=== PATIENT | female | born 1985 | race Caucasian/White ===

== ENCOUNTER → 2020-08-21 | Outpatient (CLI) | payer OTHER ==
--- NOTE | 2020-08-21 15:01 | US ---
EXAMINATION TYPE: US thyroid st tissue head/neck DATE OF EXAM: 08/21/2020 COMPARISON: Thyroid ultrasound December 16, 2013 CLINICAL HISTORY: E03.9 HYPOTHYROID. Thyroid disorder on meds for years. GLAND SIZE: Right Lobe: 2.5 x .9 x 1.0 cm Overall Parenchyma: heterogenous Left Lobe: 3.4 x 1.6 x 1.4 cm Overall Parenchyma: heterogeneous Isthmus Thickness: .2 cm NODULES RIGHT: # of nodules measured on right: 0 LEFT: # of nodules measured on left: ISTHMUS: # of nodules measured in the isthmus: 0 Bilateral neck scanned, no evidence of lymphadenopathy. Heterogeneous small sized thyroid gland without discrete nodule. No significant change from prior. IMPRESSION: As above.
== END | disposition home or self-care (01) ==
LOC: RADUSWWP 14:38
PROVIDERS: ATTEND Family Medicine
DX: E03.9 Hypothyroidism, unspecified (principal)
CPT/HCPCS: 76536

== ENCOUNTER 2022-04-12 06:54 | Observation (INO) | payer OTHER ==
[2022-04-12] MEDS ORDERED: SODIUM CHLORIDE 0.9% 500 ML 500 ML IV STA (07:09)
[2022-04-12] MEDS ORDERED: SODIUM CHLORIDE 0.9% 1,000 ML IV STA (07:09)
[2022-04-12] MEDS ORDERED: ONDANSETRON 4 MG/2 ML VIAL IVP STA (07:09)
--- NOTE | 2022-04-12 07:47 | ED ---
Abdominal Pain HPI - General Chief Complaint: Abdominal Pain Stated Complaint: RLQ pain, vomiting Time Seen by Provider: 04/12/22 07:04 Source: patient, RN notes reviewed Mode of arrival: ambulatory Limitations: no limitations - History of Present Illness Initial Comments: This a 36-year-old female presents emergency Department chief complaint of right lower quadrant abdominal pain. Patient states it started 2 days ago with vomiting, diarrhea. Patient states the pain has been persistently in that area. She states that she had a prior tubal ligation denies any other abdominal surgeries. No dysuria no hematuria denies any melena or hematochezia. Patient denies any hematemesis no reported fever does admit some chills, sweats. - Related Data Home Medications Medication Instructions Recorded Confirmed Atorvastatin [Lipitor] 20 mg PO DAILY 04/12/22 04/12/22 Emgality Unknown Dose 1 dose SQ Q30D 04/12/22 04/12/22 Famotidine [Pepcid] 40 mg PO DAILY 04/12/22 04/12/22 Ferrous Sulfate [Feosol] 325 mg PO HS 04/12/22 04/12/22 Ketorolac [Toradol] 10 mg PO DAILY PRN 04/12/22 04/12/22 Levothyroxine Sodium [Synthroid] 175 mcg PO DAILY 04/12/22 04/12/22 Ozempic Unknown Dose 1 dose SQ WE 04/12/22 04/12/22 Wellbutrin Unknown Dose 1 tab PO DAILY 04/12/22 04/12/22 Allergies Allergy/AdvReac Type Severity Reaction Status Date / Time amoxicillin [Amoxicillin] Allergy Unknown Verified 04/12/22 08:49 diphenhydramine HCl Allergy Unknown Verified 04/12/22 08:49 [From Benadryl] Penicillins Allergy Unknown Verified 04/12/22 08:49 promethazine HCl Allergy Unknown Verified 04/12/22 08:49 [From Phenergan] Antihistamines - Alkylamine AdvReac Nausea & Verified 04/12/22 08:49 Vomiting Review of Systems ROS Statement: Those systems with pertinent positive or pertinent negative responses have been documented in the HPI. ROS Other: All systems not noted in ROS Statement are negative. Past Medical History Past Medical History: Thyroid Disorder History of Any Multi-Drug Resistant Organisms: None Reported Past Surgical History: Cholecystectomy, Tubal Ligation Past Psychological History: Anxiety Smoking Status: Former smoker Past Alcohol Use History: None Reported Past Drug Use History: None Reported General Exam Limitations: no limitations General appearance: alert, in no apparent distress Head exam: Present: atraumatic, normocephalic, normal inspection Eye exam: Present: normal appearance, PERRL, EOMI. Absent: scleral icterus, conjunctival injection, periorbital swelling ENT exam: Present: normal exam, normal oropharynx, mucous membranes moist Neck exam: Present: normal inspection, full ROM. Absent: tenderness, meningismus, lymphadenopathy Respiratory exam: Present: normal lung sounds bilaterally. Absent: respiratory distress, wheezes, rales, rhonchi, stridor Cardiovascular Exam: Present: normal rhythm, tachycardia, normal heart sounds. Absent: systolic murmur, diastolic murmur, rubs, gallop, clicks GI/Abdominal exam: Present: soft, tenderness (Right lower quadrant), normal bowel sounds. Absent: distended, guarding, rebound, rigid Back exam: Absent: CVA tenderness (R), CVA tenderness (L) Neurological exam: Present: alert, oriented X3 Skin exam: Present: warm, dry, intact, normal color. Absent: rash Course Vital Signs 04/12/22 06:57 Temperature 97.9 F Pulse Rate 119 H Respiratory 20 Rate Blood Pressure 120/88 O2 Sat by Pulse 99 Oximetry Medical Decision Making - Medical Decision Making 36-year-old present for right-sided abdominal pain CT shows dilated appendix. There is no significant inflammatory changes of patient does have concerning symptoms and leukocytosis. Case discussed with Dr. Delong recommends patient nothing by mouth antibiotics. - Lab Data Result diagrams: 04/12/22 07:40 04/12/22 07:40 Lab Results 04/12/22 04/12/22 04/12/22 Range/Units 07:40 07:40 07:40 WBC 14.8 H (3.8-10.6) k/uL RBC 4.99 (3.80-5.40) m/uL Hgb 15.1 (11.4-16.0) gm/dL Hct 47.7 H (34.0-46.0) % MCV 95.6 (80.0-100.0) fL MCH 30.2 (25.0-35.0) pg MCHC 31.6 (31.0-37.0) g/dL RDW 13.7 (11.5-15.5) % Plt Count 377 (150-450) k/uL MPV 7.6 Neutrophils % 85 % Lymphocytes % 9 % Monocytes % 3 % Eosinophils % 3 % Basophils % 0 % Neutrophils # 12.5 H (1.3-7.7) k/uL Lymphocytes # 1.4 (1.0-4.8) k/uL Monocytes # 0.4 (0-1.0) k/uL Eosinophils # 0.4 (0-0.7) k/uL Basophils # 0.1 (0-0.2) k/uL Sodium 137 (137-145) mmol/L Potassium 4.6 (3.5-5.1) mmol/L Chloride 107 (98-107) mmol/L Carbon Dioxide 18 L (22-30) mmol/L Anion Gap 12 mmol/L BUN 9 (7-17) mg/dL Creatinine 0.83 (0.52-1.04) mg/dL Est GFR (CKD-EPI)AfAm >90 (>60 ml/min/1.73 sqM) Est GFR (CKD-EPI)NonAf >90 (>60 ml/min/1.73 sqM) Glucose 144 H (74-99) mg/dL Plasma Lactic Acid Dylan 0.9 (0.7-2.0) mmol/L Calcium 8.9 (8.4-10.2) mg/dL Total Bilirubin 0.6 (0.2-1.3) mg/dL AST 23 (14-36) U/L ALT 25 (4-34) U/L Alkaline Phosphatase 142 H (38-126) U/L Total Protein 7.7 (6.3-8.2) g/dL Albumin 4.4 (3.5-5.0) g/dL Amylase 70 (30-110) U/L Lipase 172 (23-300) U/L Urine Color Urine Appearance (Clear) Urine pH (5.0-8.0) Ur Specific Mcnary (1.001-1.035) Urine Protein (Negative) Urine Glucose (UA) (Negative) Urine Ketones (Negative) Urine Blood (Negative) Urine Nitrite (Negative) Urine Bilirubin (Negative) Urine Urobilinogen (<2.0) mg/dL Ur Leukocyte Esterase (Negative) Urine RBC (0-5) /hpf Urine WBC (0-5) /hpf Ur Squamous Epith Cells (0-4) /hpf Urine Bacteria (None) /hpf Hyaline Casts (0-2) /lpf Urine Mucus (None) /hpf 04/12/22 Range/Units 08:36 WBC (3.8-10.6) k/uL RBC (3.80-5.40) m/uL Hgb (11.4-16.0) gm/dL Hct (34.0-46.0) % MCV (80.0-100.0) fL MCH (25.0-35.0) pg MCHC (31.0-37.0) g/dL RDW (11.5-15.5) % Plt Count (150-450) k/uL MPV Neutrophils % % Lymphocytes % % Monocytes % % Eosinophils % % Basophils % % Neutrophils # (1.3-7.7) k/uL Lymphocytes # (1.0-4.8) k/uL Monocytes # (0-1.0) k/uL Eosinophils # (0-0.7) k/uL Basophils # (0-0.2) k/uL Sodium (137-145) mmol/L Potassium (3.5-5.1) mmol/L Chloride (98-107) mmol/L Carbon Dioxide (22-30) mmol/L Anion Gap mmol/L BUN (7-17) mg/dL Creatinine (0.52-1.04) mg/dL Est GFR (CKD-EPI)AfAm (>60 ml/min/1.73 sqM) Est GFR (CKD-EPI)NonAf (>60 ml/min/1.73 sqM) Glucose (74-99) mg/dL Plasma Lactic Acid Dylan (0.7-2.0) mmol/L Calcium (8.4-10.2) mg/dL Total Bilirubin (0.2-1.3) mg/dL AST (14-36) U/L ALT (4-34) U/L Alkaline Phosphatase (38-126) U/L Total Protein (6.3-8.2) g/dL Albumin (3.5-5.0) g/dL Amylase (30-110) U/L Lipase (23-300) U/L Urine Color Dark Yellow Urine Appearance Cloudy H (Clear) Urine pH 5.5 (5.0-8.0) Ur Specific Mcnary 1.031 (1.001-1.035) Urine Protein 1+ H (Negative) Urine Glucose (UA) Trace H (Negative) Urine Ketones Trace H (Negative) Urine Blood Negative (Negative) Urine Nitrite Negative (Negative) Urine Bilirubin 1+ H (Negative) Urine Urobilinogen 2.0 (<2.0) mg/dL Ur Leukocyte Esterase Negative (Negative) Urine RBC 2 (0-5) /hpf Urine WBC 9 H (0-5) /hpf Ur Squamous Epith Cells 27 H (0-4) /hpf Urine Bacteria Occasional H (None) /hpf Hyaline Casts 28 H (0-2) /lpf Urine Mucus Many H (None) /hpf Disposition Clinical Impression: Acute appendicitis Disposition: ADMITTED IP TO THIS HOSP Condition: Fair Referrals: Anuj Chapa MD [Primary Care Provider] - 1-2 days Time of Disposition: 09:22
[2022-04-12 07:57] LABS: Basophils # (A) 0.1 k/uL (0-0.2); Basophils % (A) 0 %; Eosinophils # (A) 0.4 k/uL (0-0.7); Eosinophils % (A) 3 %; HCT 47.7 % (34.0-46.0); HGB 15.1 gm/dL (11.4-16.0); Lymphocytes # (A) 1.4 k/uL (1.0-4.8); Lymphocytes % (A) 9 %; MCH 30.2 pg (25.0-35.0); MCHC 31.6 g/dL (31.0-37.0); MCV 95.6 fL (80.0-100.0); Mean Platelet Volume 7.6; Monocytes # (A) 0.4 k/uL (0-1.0); Monocytes % (A) 3 %; Neutrophils # (A) 12.5 k/uL (1.3-7.7); Neutrophils % (A) 85 %; Platelet Count 377 k/uL (150-450); RBC 4.99 m/uL (3.80-5.40); RDW 13.7 % (11.5-15.5); WBC 14.8 k/uL (3.8-10.6)
[2022-04-12 08:06] LABS: ALT 25 U/L (4-34); AST 23 U/L (14-36); African American GFR (CKD) >90 (>60 ml/min/1.73 sqM); Albumin 4.4 g/dL (3.5-5.0); Alkaline Phosphatase 142 U/L (38-126); Amylase 70 U/L (30-110); Anion Gap 12 mmol/L; Blood Urea Nitrogen 9 mg/dL (7-17); Calcium 8.9 mg/dL (8.4-10.2); Carbon Dioxide 18 mmol/L (22-30); Chloride 107 mmol/L (98-107); Glucose 144 mg/dL (74-99); Lipase 172 U/L (23-300); Non-African American GFR(CKD) >90 (>60 ml/min/1.73 sqM); Potassium 4.6 mmol/L (3.5-5.1); Sodium 137 mmol/L (137-145); Total Bilirubin 0.6 mg/dL (0.2-1.3); Total Protein 7.7 g/dL (6.3-8.2)
--- NOTE | 2022-04-12 08:22 | CT ---
EXAMINATION TYPE: CT abdomen pelvis wo con DATE OF EXAM: 04/12/2022 COMPARISON: No previous CT scan is available for comparison HISTORY: RLQ pain CT DLP: 1957.4 mGycm Automated exposure control for dose reduction was used. TECHNIQUE: Helical acquisition of images was performed from the lung bases through the pelvis. FINDINGS: LUNG BASES: No significant abnormality is appreciated. LIVER/GB: Previous cholecystectomy. No definite hepatic focal lesion. PANCREAS: No significant abnormality is seen. SPLEEN: No significant abnormality is seen. ADRENALS: No significant abnormality is seen. KIDNEYS: No significant abnormality is seen. FREE AIR: No free air is visualized RETROPERITONEAL ADENOPATHY: None visualized REPRODUCTIVE ORGANS: No gross uterine or adnexal mass. URINARY BLADDER: Nondistended. PELVIC ADENOPATHY: No pathologically enlarged pelvic lymph nodes. OSSEOUS STRUCTURES: No gross aggressive bone lesion. BOWEL: Unremarkable stomach, duodenum and small bowel. Fluid-filled rectum and segments of the colon , please correlate clinically for diarrhea. No gross colonic mass or significant colonic wall thicken ing. The appendix measures 7 mm in diameter without significant surrounding acute inflammatory change s. OTHER: Josee root of mesentery with subcentimeter mesenteric lymph nodes which can be seen in cases o f mesenteric panniculitis. No sizable ascites. Very small fat-containing umbilical hernia. IMPRESSION: Borderline appendicular diameter without significant surrounding acute inflammatory changes. Recommen d clinical correlation to rule out mild acute appendicitis. Further surgical consultation can be cons idered if clinically required. Changes suggestive of mesenteric panniculitis. Suspected diarrhea as described above.
[2022-04-12 08:43] LABS: Appearance,Urine Cloudy (Clear); Bacteria,Urine Occasional /hpf; Bilirubin,Urine 1+ (Negative); Blood,Urine Negative (Negative); Color,Urine Dark Yellow; Glucose,Urine (UA) Trace (Negative); Hyaline Casts,Urine 28 /lpf (0-2); Ketones,Urine Trace (Negative); Leukocyte Esterase,Urine Negative (Negative); Mucus,Urine Many /hpf; Nitrite,Urine Negative (Negative); PH, Urine 5.5 (5.0-8.0); Protein,Urine 1+ (Negative); RBC,Urine 2 /hpf (0-5); Specific Gravity,Urine 1.031 (1.001-1.035); Squamous Epithelial Cell,Urine 27 /hpf (0-4); WBC,Urine 9 /hpf (0-5)
[2022-04-12] MEDS ORDERED: SODIUM CHLORIDE 0.9% 1,000 ML IV ONE (09:45)
[2022-04-12] MEDS ORDERED: NALOXONE 0.4 MG/ML 1 ML VIAL IV PRN (09:49)
[2022-04-12] MEDS ORDERED: ONDANSETRON 4 MG/2 ML VIAL IVP PRN (09:49)
[2022-04-12] MEDS ORDERED: metroNIDAZOLE-NS PMX 500 MG in SALINE 1 100ML.BAG IVPB STA (09:52)
[2022-04-12] MEDS: HYDROmorphone 0.5 MG/0.5 ML SYRINGE IVP PRN ×3 (11:46→20:21)
[2022-04-12] MEDS: SODIUM CHLORIDE 0.9% 1,000 ML IV SCH ×3 (12:35→23:32)
--- NOTE | 2022-04-12 14:04 | P.GSHP ---
History of Present Illness H&P Date: 04/12/22 CHIEF COMPLAINT: Abdominal pain HISTORY OF PRESENT ILLNESS: This is a 36-year-old female who presented to the hospital with complaints of right lower quadrant abdominal pain. Pain started 2 days ago with vomiting and diarrhea. Patient's abdominal pain is more across the complete lower abdomen upon further evaluation. Past surgical history includes prior tubal ligation and cholecystectomy. Computed tomography scan abdomen and pelvis without contrast shows borderline appendicular diameter wit hout significant surrounding acute inflammatory changes. Recommend clinical correlation to rule out acute appendicitis. Changes suggestive of mesenteric panniculitis. Suspected diarrhea. Patient seen and examined by Dr. painting. He felt the patient's symptoms were more likely related to panniculitis then acute appendicitis. Patient is been started on IV antibiotics. Afebrile. She did have some mild tachycardia and leukocytosis. Patient seen and examined with Dr. painting PAST MEDICAL HISTORY: Hypothyroidism, hyperlipidemia, diabetes, anxiety PAST SURGICAL HISTORY: Cholecystectomy, tubal ligation MEDICATIONS: See list. ALLERGIES: See list. SOCIAL HISTORY: No illicit drug use. REVIEW OF SYSTEMS: CONSTITUTIONAL: Denies fever or chills. HEENT: Denies blurred vision, vision changes, or eye pain. Denies hemoptysis CARDIOVASCULAR: Denies chest pain or pressure. RESPIRATORY: No shortness of breath. GASTROINTESTINAL: See HPI for pertinent findings HEMATOLOGIC: Denies bleeding disorders. GENITOURINARY: Denies any blood in urine or increased urinary frequency. SKIN: Denies pruitis. Denies rash. PHYSICAL EXAM: VITAL SIGNS: Reviewed GENERAL: Well-developed in no acute distress. HEENT: No sclera icterus. Extraocular movements grossly intact. Moist buccal mucosa. Head is atraumatic, normocephalic. No nasal drainage. ABDOMEN: Soft. Nondistended. Tenderness to palpation across the lower abdomen NEUROLOGIC: Alert and oriented. Cranial nerves II through XII grossly intact. LABORATORY DATA: WBC is 14.8 Hgb 15.1 platelets 377 Sodium is 137 potassium is 4.6 creatinine 0.83 Lactic acid 0.9 Total bilirubin 0.6 AST 23 ALT 25 alk phos 142 Lipase 172 Urinalysis no evidence of acute infection IMAGING: Computed tomography scan results as stated above ASSESSMENT: 1. Panniculitis with abdominal pain across the lower abdomen. CAT scan results reviewed by Dr. painting. He felt patient's symptoms were due to panniculitis. Patient did have evidence of an enlarged appendix on CT but he did not think this was an acute appendicitis 2. Diabetes mellitus PLAN: -Continue IV antibiotics -Start clear liquid diet -Continue pain medication as needed -Continue antiemetics as needed -Consult medicine service for medical management -Add Novolog sliding coverage for diabetes. Further diabetes management per medicine service -GI prophylaxis Pepcid and DVT prophylaxis subcu heparin Physician [employer] note has been reviewed by physician. Signing provider agrees with the documented findings, assessment, and plan of care. Past Medical History Past Medical History: Thyroid Disorder History of Any Multi-Drug Resistant Organisms: None Reported Past Surgical History: Cholecystectomy, Tubal Ligation Past Psychological History: Anxiety Smoking Status: Former smoker Past Alcohol Use History: None Reported Past Drug Use History: None Reported Medications and Allergies Home Medications Medication Instructions Recorded Confirmed Type Atorvastatin [Lipitor] 20 mg PO DAILY 04/12/22 04/12/22 History Famotidine [Pepcid] 40 mg PO DAILY 04/12/22 04/12/22 History Ferrous Sulfate [Feosol] 325 mg PO HS 04/12/22 04/12/22 History Galcanezumab-Gnlm [Emgality 120 mg SQ Q30D 04/12/22 04/12/22 History Syringe] Ketorolac [Toradol] 10 mg PO DAILY PRN 04/12/22 04/12/22 History Levothyroxine Sodium [Synthroid] 175 mcg PO DAILY 04/12/22 04/12/22 History Semaglutide [Ozempic] 0.25 mg SQ WE 04/12/22 04/12/22 History buPROPion XL [Wellbutrin XL] 150 mg PO DAILY 04/12/22 04/12/22 History Allergies Allergy/AdvReac Type Severity Reaction Status Date / Time amoxicillin [Amoxicillin] Allergy Unknown Verified 04/12/22 08:49 diphenhydramine HCl Allergy Unknown Verified 04/12/22 08:49 [From Benadryl] Penicillins Allergy Unknown Verified 04/12/22 08:49 promethazine HCl Allergy Unknown Verified 04/12/22 08:49 [From Phenergan] Antihistamines - Alkylamine AdvReac Nausea & Verified 04/12/22 08:49 Vomiting Surgical - Exam Vital Signs Temp Pulse Resp BP Pulse Ox 97.9 F 119 H 20 120/88 99 04/12/22 06:57 04/12/22 06:57 04/12/22 06:57 04/12/22 06:57 04/12/22 06:57 Results - Labs 04/12/22 07:40 04/12/22 07:40 Abnormal Lab Results - Last 24 Hours (Table) 04/12/22 04/12/22 04/12/22 Range/Units 07:40 07:40 08:36 WBC 14.8 H (3.8-10.6) k/uL Hct 47.7 H (34.0-46.0) % Neutrophils # 12.5 H (1.3-7.7) k/uL Carbon Dioxide 18 L (22-30) mmol/L Glucose 144 H (74-99) mg/dL Alkaline Phosphatase 142 H (38-126) U/L Urine Appearance Cloudy H (Clear) Urine Protein 1+ H (Negative) Urine Glucose (UA) Trace H (Negative) Urine Ketones Trace H (Negative) Urine Bilirubin 1+ H (Negative) Urine WBC 9 H (0-5) /hpf Ur Squamous Epith Cells 27 H (0-4) /hpf Urine Bacteria Occasional H (None) /hpf Hyaline Casts 28 H (0-2) /lpf Urine Mucus Many H (None) /hpf Diabetes panel 04/12/22 Range/Units 07:40 Sodium 137 (137-145) mmol/L Potassium 4.6 (3.5-5.1) mmol/L Chloride 107 (98-107) mmol/L Carbon Dioxide 18 L (22-30) mmol/L BUN 9 (7-17) mg/dL Creatinine 0.83 (0.52-1.04) mg/dL Glucose 144 H (74-99) mg/dL Calcium 8.9 (8.4-10.2) mg/dL AST 23 (14-36) U/L ALT 25 (4-34) U/L Alkaline Phosphatase 142 H (38-126) U/L Total Protein 7.7 (6.3-8.2) g/dL Albumin 4.4 (3.5-5.0) g/dL Calcium panel 04/12/22 Range/Units 07:40 Calcium 8.9 (8.4-10.2) mg/dL Albumin 4.4 (3.5-5.0) g/dL Pituitary panel 04/12/22 Range/Units 07:40 Sodium 137 (137-145) mmol/L Potassium 4.6 (3.5-5.1) mmol/L Chloride 107 (98-107) mmol/L Carbon Dioxide 18 L (22-30) mmol/L BUN 9 (7-17) mg/dL Creatinine 0.83 (0.52-1.04) mg/dL Glucose 144 H (74-99) mg/dL Calcium 8.9 (8.4-10.2) mg/dL Adrenal panel 04/12/22 Range/Units 07:40 Sodium 137 (137-145) mmol/L Potassium 4.6 (3.5-5.1) mmol/L Chloride 107 (98-107) mmol/L Carbon Dioxide 18 L (22-30) mmol/L BUN 9 (7-17) mg/dL Creatinine 0.83 (0.52-1.04) mg/dL Glucose 144 H (74-99) mg/dL Calcium 8.9 (8.4-10.2) mg/dL Total Bilirubin 0.6 (0.2-1.3) mg/dL AST 23 (14-36) U/L ALT 25 (4-34) U/L Alkaline Phosphatase 142 H (38-126) U/L Total Protein 7.7 (6.3-8.2) g/dL Albumin 4.4 (3.5-5.0) g/dL
[2022-04-12] MEDS: FAMOTIDINE 20 MG TAB PO SCH (14:59)
[2022-04-12] MEDS: LEVOTHYROXINE 88 MCG TAB PO SCH (14:59)
[2022-04-12] MEDS: metroNIDAZOLE-NS PMX 500 MG in SALINE 1 100ML.BAG IVPB SCH ×2 (15:00→23:32)
[2022-04-12 17:18] LABS: Glucose,Whole Blood 79 mg/dL (70-110)
[2022-04-12] MEDS: INSULIN ASPART (NovoLOG) 100 UNIT/ML VIAL SQ SCH ×2 (17:30→20:58)
--- NOTE | 2022-04-12 17:34 | P.CONS ---
History of Present Illness - Reason for Consult Consult date: 04/12/22 Medical Management Requesting physician: Wayne Delong - History of Present Illness History of Presenting Illness: Patient is a 36-year-old female with a past medical history of hypertension, hypothyroidism, and obesity. She presented to the emergency department with a chief complaint of right lower quadrant abdominal pain accompanied by nausea, vomiting, and diarrhea 2 days. Patient reports initially thought she had the stomach flu but reports pain persisted and was constant so she came to the emergency department for evaluation. In the emergency Department patient underwent full evaluation. She was found to have leukocytosis with WBC count of 14.8 with a left shift and elevated alkaline phosphatase of 142. Urinalysis was contaminated, however does not appear to be of concern for infection. CT abdomen and pelvis completed revealing borderline appendicular diameter without significant surrounding acute inflammatory changes and changes suggestive of mesenteric panniculitis. Patient was admitted under Gen. surgery team secondary to concerns of possible appendicitis secondary to leukocytosis and dilated appendix and persistent right lower quadrant pain. Patient was started on IV antibiotics with Rocephin and Flagyl. We are consulted for continued medical management throughout patient's hospitalization. Patient was seen and fully evaluated at bedside. Currently patient reporting right lower quadrant pain is controlled by current pain medication regimen stating she just received Dilaudid. Currently patient reports feeling slightly nauseous but denies any further episodes of vomiting. She denies experiencing any recent fevers, chills, diaphoresis, hematemesis, chest pain, palpitations, shortness of breath, cough or congestion, melena, or hematochezia. Review of systems: Pertinent positives and negatives as discussed in HPI, a complete review of systems was performed and all other systems are negative. Physical exam: Vital signs reviewed and stable. General: Nontoxic, no distress and appears stated age. Obese Derm: Skin warm and dry, normal coloration for ethnicity. Head: Atraumatic, normocephalic and symmetric. Eyes: EOMs intact, no lid lag, and anicteric sclera Mouth: no lip lesions, mucus membranes moist Cardiovascular: regular rate and rhythm with normal S1S2, no murmur, positive posterior tibial pulses bilaterally, and cap refill < 2 seconds. Lungs: Respirations even, regular, and unlabored on room air. Lungs CTA bilaterally, no rhonchi, no rales, no wheezing, and no accessory muscle usage. Abdominal: obese abdomen, soft, right lower quadrant tenderness upon palpation, no guarding, no appreciable organomegaly Ext: ROM intact. No gross muscle atrophy, no edema, no contractures Neuro: Speech clear, face symmetrical and CN II-XII grossly intact with no noted focal neuro deficits Psych: Alert and oriented to person, place, time, and situation. Appropriate and pleasant affect. Assessment and Plan of Care: Abdominal pain, nausea, vomiting, and diarrhea Leukocytosis Dilated appendix -Patient admitted under Gen. surgery team to rule out appendicitis. -NPO. -Continue IV fluid hydration -Continue IV antibiotics with Rocephin and Flagyl -Symptomatic care and pain management. Hypothyroidism -Continue daily medication regimen with levothyroxine. Anxiety -Continue daily medication regimen with Wellbutrin. Iron deficiency anemia -Continue daily medication regimen with ferrous sulfate 325 mg Morbid Obesity with BMI 48.4 kg/m. -Patient takes Ozempic for weight loss, we will hold at this time. Thank you for allowing us to participate in the care of this pleasant patient. Do not hesitate to contact us with questions. Someone can be reached from the [facility] hospitalist group all hours of the day at [phone] or via [employer]. Past Medical History Past Medical History: Thyroid Disorder History of Any Multi-Drug Resistant Organisms: None Reported Past Surgical History: Cholecystectomy, Tubal Ligation Past Psychological History: Anxiety Smoking Status: Former smoker Past Alcohol Use History: None Reported Past Drug Use History: None Reported Medications and Allergies Home Medications Medication Instructions Recorded Confirmed Type Atorvastatin [Lipitor] 20 mg PO DAILY 04/12/22 04/12/22 History Famotidine [Pepcid] 40 mg PO DAILY 04/12/22 04/12/22 History Ferrous Sulfate [Feosol] 325 mg PO HS 04/12/22 04/12/22 History Galcanezumab-Gnlm [Emgality 120 mg SQ Q30D 04/12/22 04/12/22 History Syringe] Ketorolac [Toradol] 10 mg PO DAILY PRN 04/12/22 04/12/22 History Levothyroxine Sodium [Synthroid] 175 mcg PO DAILY 04/12/22 04/12/22 History Semaglutide [Ozempic] 0.25 mg SQ WE 04/12/22 04/12/22 History buPROPion XL [Wellbutrin XL] 150 mg PO DAILY 04/12/22 04/12/22 History Allergies Allergy/AdvReac Type Severity Reaction Status Date / Time amoxicillin [Amoxicillin] Allergy Unknown Verified 04/12/22 08:49 diphenhydramine HCl Allergy Unknown Verified 04/12/22 08:49 [From Benadryl] Penicillins Allergy Unknown Verified 04/12/22 08:49 promethazine HCl Allergy Unknown Verified 04/12/22 08:49 [From Phenergan] Antihistamines - Alkylamine AdvReac Nausea & Verified 04/12/22 08:49 Vomiting Physical Exam Vitals: Vital Signs Temp Pulse Pulse Resp BP BP Pulse Ox 04/12/22 13:44 98.4 F 84 12 111/68 96 04/12/22 11:20 97.5 F L 85 14 132/82 99 04/12/22 11:14 78 18 145/83 100 04/12/22 06:57 97.9 F 119 H 20 120/88 99 Intake and Output 04/11/22 04/12/22 04/12/22 22:59 06:59 14:59 Intake Total 118 Balance 118 Intake: Oral 118 Other: # Voids 1 Weight 144.242 kg 144.242 kg Results CBC & Chem 7: 04/12/22 07:40 04/12/22 07:40 Labs: Abnormal Lab Results - Last 24 Hours (Table) 04/12/22 04/12/22 04/12/22 Range/Units 07:40 07:40 08:36 WBC 14.8 H (3.8-10.6) k/uL Hct 47.7 H (34.0-46.0) % Neutrophils # 12.5 H (1.3-7.7) k/uL Carbon Dioxide 18 L (22-30) mmol/L Glucose 144 H (74-99) mg/dL Alkaline Phosphatase 142 H (38-126) U/L Urine Appearance Cloudy H (Clear) Urine Protein 1+ H (Negative) Urine Glucose (UA) Trace H (Negative) Urine Ketones Trace H (Negative) Urine Bilirubin 1+ H (Negative) Urine WBC 9 H (0-5) /hpf Ur Squamous Epith Cells 27 H (0-4) /hpf Urine Bacteria Occasional H (None) /hpf Hyaline Casts 28 H (0-2) /lpf Urine Mucus Many H (None) /hpf
[2022-04-12] MEDS: HEPARIN SODIUM,PORCINE/PF 5,000 UNIT/0.5 ML SYRINGE SQ SCH (20:22)
[2022-04-12 20:26] LABS: Glucose,Whole Blood 79 mg/dL (70-110)
[2022-04-12] MEDS ORDERED: FERROUS SULFATE 325 MG TAB PO SCH (21:00)
[2022-04-13] MEDS ORDERED: ACETAMINOPHEN TAB 325 MG TAB PO PRN (01:59)
[2022-04-13 02:09] VITALS: RESP 18
[2022-04-13] MEDS: LEVOTHYROXINE 88 MCG TAB PO SCH (05:57)
[2022-04-13] MEDS: SODIUM CHLORIDE 0.9% 1,000 ML IV SCH (05:57)
[2022-04-13 07:05] LABS: Glucose,Whole Blood 96 mg/dL (70-110)
[2022-04-13 07:12] VITALS: BP 101/54; PULSE 85; TEMP 98.3
[2022-04-13] MEDS: INSULIN ASPART (NovoLOG) 100 UNIT/ML VIAL SQ SCH (07:17)
[2022-04-13] MEDS: FAMOTIDINE 20 MG TAB PO SCH (07:34)
[2022-04-13] MEDS: metroNIDAZOLE-NS PMX 500 MG in SALINE 1 100ML.BAG IVPB SCH (07:34)
[2022-04-13] MEDS: HEPARIN SODIUM,PORCINE/PF 5,000 UNIT/0.5 ML SYRINGE SQ SCH (07:35)
[2022-04-13] MEDS ORDERED: buPROPion XL 150 MG TAB.ER.24H PO SCH (09:00)
[2022-04-13] MEDS ORDERED: ATORVASTATIN 20 MG TAB PO SCH (09:00)
[2022-04-13 09:10] LABS: Basophils # (A) 0.01 X 10*3/uL (0.00-0.10); Basophils % (A) 0.1 %; Eosinophils # (A) 0.32 X 10*3/uL (0.04-0.35); Eosinophils % (A) 3.3 %; HCT 41.4 % (37.2-46.3); HGB 12.3 g/dL (12.0-15.0); Immature Grans, Automated 0.4 %; Lymphocytes # (A) 1.63 X 10*3/uL (0.90-5.00); Lymphocytes % (A) 16.9 %; MCH 28.3 pg (27.0-32.0); MCHC 29.7 g/dL (32.0-37.0); MCV 95.4 fL (80.0-97.0); Monocytes # (A) 0.51 X 10*3/uL (0.20-1.00); Monocytes % (A) 5.3 %; NRBC Per 100 WBC 0 /100 WBCS (0.0-0.0); Neutrophils # (A) 7.13 X 10*3/uL (1.80-7.70); Platelet Count 272 X 10*3/uL (140-440); RBC 4.34 X 10*6/uL (4.10-5.20); RDW 13.6 % (11.5-14.5); WBC 9.64 X 10*3/uL (4.50-10.00)
[2022-04-13 09:53] LABS: African American GFR (CKD) 128.3 (60.0-200.0); Albumin 3.3 g/dL (3.8-4.9); Albumin/Globulin Ratio 1.43 (1.60-3.17); Anion Gap 8.6 mmol/L (10.00-18.00); BUN/Creat Ratio 7.57 Ratio (12.00-20.00); Blood Urea Nitrogen 5.3 mg/dL (9.0-27.0); Carbon Dioxide 20.4 mmol/L (20.0-27.5); Globulin 2.3 g/dL (1.6-3.3); Non-African American GFR(CKD) 110.7 (60.0-200.0); Potassium 4.5 mmol/L (3.5-5.5); Total Bilirubin 0.2 mg/dL (0.30-1.20); Total Protein 5.6 g/dL (6.2-8.2)
--- NOTE | 2022-04-13 11:14 | P.DS ---
Providers Date of admission: 04/12/22 09:56 Expected date of discharge: 04/13/22 Attending physician: Wayne Painting Consults: 04/12/22 13:48 Consult Physician Routine Consulting Provider: Santa Centeno Consult Reason/Comments: medical management Do you want consulting provider notified?: Yes Primary care physician: Anuj Chapa Hospital Course: Discharge diagnosis 1. Panniculitis with abdominal pain across the lower abdomen. CAT scan results reviewed by Dr. painting. He felt patient's symptoms were due to panniculitis. Patient did have evidence of an enlarged appendix on CT but he did not think this was an acute appendicitis 2. Diarrhea resolved Hospital course This is a 36-year-old female with complaints of lower abdominal pain across the abdomen. Computed tomography scan of abdomen and pelvis shows borderline appendicular diameter without significant surrounding acute inflammatory changes. Recommend clinical correlation to rule out acute appendicitis. Changes suggestive of mesenteric panniculitis. Suspected diarrhea. Patient was started on IV antibiotics. Her white count has normalized. She is afebrile. Her pain has resolved. She is tolerating diet. She is stable for discharge. Patient will continue antibiotics for her panniculitis. Recommend also continue a bland diet for the next few days. Patient is stable for discharge. Please r efer to chart for any further details. Patient seen and examined with Dr. painting Physician [employer] note has been reviewed by physician. Signing provider agrees with the documented findings, assessment, and plan of care. Patient Condition at Discharge: Stable Plan - Discharge Summary New Discharge Prescriptions: New cefUROXime axetiL [Ceftin] 500 mg PO BID 1 Days #14 tab metroNIDAZOLE [Flagyl] 500 mg PO TID #21 tab Continue Ketorolac [Toradol] 10 mg PO DAILY PRN PRN Reason: Migraine Headache Famotidine [Pepcid] 40 mg PO DAILY Galcanezumab-Gnlm [Emgality Syringe] 120 mg SQ Q30D Ferrous Sulfate [Iron (65 MG Elemental)] 325 mg PO HS Levothyroxine Sodium [Synthroid] 175 mcg PO DAILY Atorvastatin [Lipitor] 20 mg PO DAILY buPROPion XL [Wellbutrin XL] 150 mg PO DAILY Semaglutide [Ozempic] 0.25 mg SQ WE Discharge Medication List Atorvastatin [Lipitor] 20 mg PO DAILY 04/12/22 [History] Famotidine [Pepcid] 40 mg PO DAILY 04/12/22 [History] Ferrous Sulfate [Iron (65 MG Elemental)] 325 mg PO HS 04/12/22 [History] Galcanezumab-Gnlm [Emgality Syringe] 120 mg SQ Q30D 04/12/22 [History] Ketorolac [Toradol] 10 mg PO DAILY PRN 04/12/22 [History] Levothyroxine Sodium [Synthroid] 175 mcg PO DAILY 04/12/22 [History] Semaglutide [Ozempic] 0.25 mg SQ WE 04/12/22 [History] buPROPion XL [Wellbutrin XL] 150 mg PO DAILY 04/12/22 [History] cefUROXime axetiL [Ceftin] 500 mg PO BID 1 Days #14 tab 04/13/22 [Rx] metroNIDAZOLE [Flagyl] 500 mg PO TID #21 tab 04/13/22 [Rx] Follow up Appointment(s)/Referral(s): Anuj Chapa MD [Primary Care Provider] - 1-2 days Wayne Painting MD [STAFF PHYSICIAN] - 1 Week Activity/Diet/Wound Care/Special Instructions: Continue a bland diet over the next few days Discharge Disposition: HOME SELF-CARE
[2022-04-13 11:47] LABS: Glucose,Whole Blood 78 mg/dL (70-110)
--- NOTE | 2022-04-13 12:30 | P.PN ---
Subjective Progress Note Date: 04/13/22 Hospital course: Patient is a 36-year-old female with a past medical history of hypertension, hypothyroidism, and obesity. She presented to the emergency department with a chief complaint of right lower quadrant abdominal pain accompanied by nausea, vomiting, and diarrhea 2 days. Patient reports initially thought she had the stomach flu but reports pain persisted and was constant so she came to the emergency department for evaluation. In the emergency Department patient underw ent full evaluation. She was found to have leukocytosis with WBC count of 14.8 with a left shift and elevated alkaline phosphatase of 142. Urinalysis was contaminated, however does not appear to be of concern for infection. CT abdomen and pelvis completed revealing borderline appendicular diameter without significant surrounding acute inflammatory changes and changes suggestive of mesenteric panniculitis. Patient was admitted under Gen. surgery team secondary to concerns of possible appendicitis secondary to leukocytosis and dilated appendix and persistent right lower quadrant pain. Patient was started on IV antibiotics with Rocephin and Flagyl. We were consulted for continued medical management throughout patient's hospitalization. Physical exam: Patient was seen and fully evaluated at bedside this morning. She reports feeling much better this morning and tolerating a clear liquid diet with no further episodes of nausea or vomiting. Morning labs reviewed revealing resolution of leukocytosis as well as previously elevated alkaline phosphatase. Vital signs unremarkable. Patient is medically stable at this time. To continue IV antibiotics with Rocephin and Flagyl, diet to advance per primary admitting general surgery team. Vital signs reviewed and stable. General: Nontoxic, no distress and appears stated age. Obese Derm: Skin warm and dry, normal coloration for ethnicity. Head: Atraumatic, normocephalic and symmetric. Eyes: EOMs intact, no lid lag, and anicteric sclera Mouth: no lip lesions, mucus membranes moist Cardiovascular: regular rate and rhythm with normal S1S2, no murmur, positive posterior tibial pulses bilaterally, and cap refill < 2 seconds. Lungs: Respirations even, regular, and unlabored on room air. Lungs CTA bilaterally, no rhonchi, no rales, no wheezing, and no accessory muscle usage. Abdominal: obese abdomen, soft, right lower quadrant tenderness upon palpation, no guarding, no appreciable organomegaly Ext: ROM intact. No gross muscle atrophy, no edema, no contractures Neuro: Speech clear, face symmetrical and CN II-XII grossly intact with no noted focal neuro deficits Psych: Alert and oriented to person, place, time, and situation. Appropriate and pleasant affect. Assessment and Plan of Care: Abdominal pain, nausea, vomiting, and diarrhea Leukocytosis, resolved Dilated appendix -Patient admitted under Gen. surgery team to rule out appendicitis. -Clear liquid diet -Continue IV fluid hydration -Continue IV antibiotics with Rocephin and Flagyl -Symptomatic care and pain management. Hypothyroidism -Continue daily medication regimen with levothyroxine. Anxiety -Continue daily medication regimen with Wellbutrin. Iron deficiency anemia -Continue daily medication regimen with ferrous sulfate 325 mg Morbid Obesity with BMI 48.4 kg/m. -Patient takes Ozempic for weight loss, we will hold at this time. Thank you for allowing us to participate in the care of this pleasant patient. Do not hesitate to contact us with questions. Someone can be reached from the [facility] hospitalist group all hours of the day at [phone] or via [employer]. Objective - Vital Signs Vital signs: Vital Signs Temp 98.3 F 04/13/22 07:00 Pulse 85 04/13/22 07:00 Resp 18 04/13/22 07:00 BP 101/54 04/13/22 07:00 Pulse Ox 99 04/13/22 07:00 FiO2 Intake & Output 04/12/22 04/13/22 04/13/22 18:59 06:59 18:59 Intake Total 236 Balance 236 Weight 144.242 kg Intake: Oral 236 Other: # Voids 1 2 1 - Labs CBC & Chem 7: 04/13/22 06:35 04/13/22 06:35 Labs: Abnormal Lab Results - Last 24 Hours (Table) 04/12/22 Range/Units 08:36 Urine Appearance Cloudy H (Clear) Urine Protein 1+ H (Negative) Urine Glucose (UA) Trace H (Negative) Urine Ketones Trace H (Negative) Urine Bilirubin 1+ H (Negative) Urine WBC 9 H (0-5) /hpf Ur Squamous Epith Cells 27 H (0-4) /hpf Urine Bacteria Occasional H (None) /hpf Hyaline Casts 28 H (0-2) /lpf Urine Mucus Many H (None) /hpf
== END 2022-04-13 11:53 | disposition home or self-care (01) ==
LOC: EC 06:54 → 6NMEDSUR 09:56
PROVIDERS: ADMIT Surgery; ATTEND Surgery
DX: M79.3 Panniculitis, unspecified (principal); K38.8 Other specified diseases of appendix; E03.9 Hypothyroidism, unspecified; I10 Essential (primary) hypertension; D72.829 Elevated white blood cell count, unspecified; R00.0 Tachycardia, unspecified; E78.5 Hyperlipidemia, unspecified; R74.8 Abnormal levels of other serum enzymes; D50.9 Iron deficiency anemia, unspecified; F41.9 Anxiety disorder, unspecified; E66.01 Morbid (severe) obesity due to excess calories; Z68.42 Body mass index [BMI] 45.0-49.9, adult; Z79.890 Hormone replacement therapy; Z79.899 Other long term (current) drug therapy; Z88.0 Allergy status to penicillin; Z88.8 Allergy status to other drugs, medicaments and biological substances; Z90.49 Acquired absence of other specified parts of digestive tract; Z98.51 Tubal ligation status; Z87.891 Personal history of nicotine dependence
CPT/HCPCS: 96376; 96361 ×3; 96366 ×2; 96372 ×2; 96375 ×2; 96368; 96365; 99285; 36415; 80053 ×2; 82150; 83605; 83690; 85025 ×2; 81001; 87040; 74176; G0378 ×2; J2405; J0696 ×2; J1170; J1644 ×2

== ENCOUNTER 2022-04-13 23:50 | Emergency (ER) | payer OTHER ==
[2022-04-14] MEDS ORDERED: ONDANSETRON ODT 4 MG TAB PO STA (00:51)
[2022-04-14] MEDS ORDERED: MORPHINE SULFATE 4 MG/ML SYRINGE IV STA (03:08)
[2022-04-14] MEDS ORDERED: SODIUM CHLORIDE 0.9% 1,000 ML IV STA (03:08)
[2022-04-14] MEDS ORDERED: ONDANSETRON 4 MG/2 ML VIAL IVP STA ×2 (03:08→07:33)
[2022-04-14] MEDS ORDERED: KETOROLAC 15 MG/ML 1 ML VIAL IVP STA (03:08)
[2022-04-14] MEDS ORDERED: metroNIDAZOLE-NS PMX 500 MG in SALINE 1 100ML.BAG IVPB STA (03:12)
--- NOTE | 2022-04-14 03:21 | ED ---
Recheck HPI <Yasemin Chowdhury - Last Filed: 04/15/22 12:05> - General Source: patient, RN notes reviewed, old records reviewed Mode of arrival: ambulatory Limitations: no limitations - History of Present Illness MD Complaint: other (Persistent abdominal pain) -: days(s) Returns Today for: persistent/worsening pain related to initial visit Symptoms Since Prior Visit: worsening pain Associated Symptoms: abdominal pain Treatments Prior to Arrival: Given Antibiotics on, Given Pain Meds on <Angel Saini - Last Filed: 04/21/22 22:37> - General Chief Complaint: Abdominal Pain Stated Complaint: Vomiting, diarrhea Time Seen by Provider: 04/14/22 03:08 - History of Present Illness Initial Comments: This is a 37-year-old female to the emergency department for evaluation. Patient claims a for evaluation of abdominal pain. Positive nausea no active vomiting. No fevers or travel history no sick contacts no history of significant abdominal surgery. Patient was recently admitted with possible appendicitis under observation and watched. Patient presents today for recurrent abdominal pain. She thinks he may related to medication (Angel Saini) - Related Data Home Medications Medication Instructions Recorded Confirmed Atorvastatin [Lipitor] 20 mg PO DAILY 04/12/22 04/14/22 Famotidine [Pepcid] 40 mg PO DAILY 04/12/22 04/14/22 Ferrous Sulfate [Iron (65 MG 325 mg PO HS 04/12/22 04/14/22 Elemental)] Galcanezumab-Gnlm [Emgality 120 mg SQ Q30D 04/12/22 04/14/22 Syringe] Ketorolac [Toradol] 10 mg PO DAILY PRN 04/12/22 04/14/22 Levothyroxine Sodium [Synthroid] 175 mcg PO DAILY 04/12/22 04/14/22 Semaglutide [Ozempic] 0.25 mg SQ WE 04/12/22 04/14/22 buPROPion XL [Wellbutrin XL] 150 mg PO DAILY 04/12/22 04/14/22 Previous Rx's Medication Instructions Recorded cefUROXime axetiL [Ceftin] 500 mg PO BID 1 Days #14 tab 04/13/22 metroNIDAZOLE [Flagyl] 500 mg PO TID #21 tab 04/13/22 Levofloxacin [Levaquin] 750 mg PO DAILY #7 tab 04/14/22 Allergies Allergy/AdvReac Type Severity Reaction Status Date / Time amoxicillin [Amoxicillin] Allergy Unknown Verified 04/14/22 09:03 diphenhydramine HCl Allergy Unknown Verified 04/14/22 09:03 [From Benadryl] Penicillins Allergy Unknown Verified 04/14/22 09:03 promethazine HCl Allergy Unknown Verified 04/14/22 09:03 [From Phenergan] Antihistamines - Alkylamine AdvReac Nausea & Verified 04/14/22 09:03 Vomiting Review of Systems ROS Other: All systems not noted in ROS Statement are negative. <Yasemin Chowdhury - Last Filed: 04/15/22 12:05> ROS Other: All systems not noted in ROS Statement are negative. <Angel Saini - Last Filed: 04/21/22 22:37> ROS Statement: Those systems with pertinent positive or pertinent negative responses have been documented in the HPI. Past Medical History Past Medical History: Thyroid Disorder History of Any Multi-Drug Resistant Organisms: None Reported Past Surgical History: Cholecystectomy, Tubal Ligation Past Psychological History: Anxiety Smoking Status: Former smoker Past Alcohol Use History: None Reported Past Drug Use History: None Reported <Angel Saini - Last Filed: 04/21/22 22:37> General Exam General appearance: alert, in no apparent distress Head exam: Present: atraumatic, normocephalic, normal inspection Eye exam: Present: normal appearance, PERRL, EOMI. Absent: scleral icterus, conjunctival injection, periorbital swelling ENT exam: Present: normal exam, mucous membranes moist Neck exam: Present: normal inspection. Absent: tenderness, meningismus, lymphadenopathy Respiratory exam: Present: normal lung sounds bilaterally. Absent: respiratory distress, wheezes, rales, rhonchi, stridor Cardiovascular Exam: Present: regular rate, normal rhythm, normal heart sounds. Absent: systolic murmur, diastolic murmur, rubs, gallop, clicks GI/Abdominal exam: Present: soft, normal bowel sounds. Absent: distended, tenderness, guarding, rebound, rigid Extremities exam: Present: normal inspection, full ROM, normal capillary refill. Absent: tenderness, pedal edema, joint swelling, calf tenderness Back exam: Present: normal inspection Neurological exam: Present: alert, oriented X3, CN II-XII intact Psychiatric exam: Present: normal affect, normal mood Skin exam: Present: warm, dry, intact, normal color. Absent: rash <Yasemin Chowdhury - Last Filed: 04/15/22 12:05> Limitations: no limitations General appearance: alert, in no apparent distress, anxious Head exam: Present: atraumatic, normocephalic, normal inspection Eye exam: Present: normal appearance, PERRL, EOMI. Absent: scleral icterus, conjunctival injection, periorbital swelling ENT exam: Present: normal exam, mucous membranes moist Neck exam: Present: normal inspection. Absent: tenderness, meningismus, lymphadenopathy Respiratory exam: Present: normal lung sounds bilaterally. Absent: respiratory distress, wheezes, rales, rhonchi, stridor Cardiovascular Exam: Present: regular rate, normal rhythm, normal heart sounds. Absent: systolic murmur, diastolic murmur, rubs, gallop, clicks GI/Abdominal exam: Present: soft, tenderness, normal bowel sounds. Absent: distended, guarding, rebound, rigid Extremities exam: Present: normal inspection, full ROM, normal capillary refill. Absent: tenderness, pedal edema, joint swelling, calf tenderness Back exam: Present: normal inspection Neurological exam: Present: alert, oriented X3, CN II-XII intact Psychiatric exam: Present: normal affect, normal mood Skin exam: Present: warm, dry, intact, normal color. Absent: rash <Angel Saini - Last Filed: 04/21/22 22:37> Course <Angel Saini - Last Filed: 04/21/22 22:37> Vital Signs 04/14/22 04/14/22 04/14/22 00:54 08:00 13:30 Temperature 97.8 F 98.2 F Pulse Rate 105 H 89 85 Respiratory 22 16 18 Rate Blood Pressure 161/96 114/64 114/64 O2 Sat by Pulse 97 97 97 Oximetry - Reevaluation(s) Reevaluation #1: Medical record is reviewed (Angel Saini) - Consultations Consultation #1: Spoke with Dr. Painting in with like a computed tomography scan of her abdomen pelvis with oral contrast (Angel Saini) Medical Decision Making - Lab Data Result diagrams: 04/14/22 03:08 04/14/22 03:08 <Yasemin Chowdhury - Last Filed: 04/15/22 12:05> - Lab Data Result diagrams: 04/14/22 03:08 04/14/22 03:08 - Radiology Data Radiology results: report reviewed (CT of the abdomen and pelvis mesenteric panniculitis no appendicitis), image reviewed <Angel Saini - Last Filed: 04/21/22 22:37> - Medical Decision Making Patient was evaluated by myself. Patient is pending oral challenge and CT of her abdomen and pelvis when she was signed out to me from dr. Saini. I reviewed the patient's labs which demonstrated a white count of 14.6. She does have 2+ ketones in the urine with trace leukocyte esterase. CT is performed which demonstrates mesenteric panniculitis. Appendix is normal. I called and spoke with Dr. painting. Patient is offered admission however would like to go home. She will be switched to Levaquin and stop the previous antibiotics that she was started on. She does have Zofran at home. Instructed to increase her fluid intake. She does have follow-up with Dr. Painting scheduled in 7 days. Return for any new or worsening symptoms. Patient discharged home in stable condition (Yasemin Chowdhury) - Lab Data Lab Results 04/14/22 04/14/22 04/14/22 Range/Units 03:08 03:08 03:09 WBC 14.6 H (3.8-10.6) k/uL RBC 4.57 (3.80-5.40) m/uL Hgb 13.8 (11.4-16.0) gm/dL Hct 43.7 (34.0-46.0) % MCV 95.6 (80.0-100.0) fL MCH 30.2 (25.0-35.0) pg MCHC 31.6 (31.0-37.0) g/dL RDW 13.8 (11.5-15.5) % Plt Count 286 (150-450) k/uL MPV 8.0 Neutrophils % 89 % Lymphocytes % 5 % Monocytes % 3 % Eosinophils % 2 % Basophils % 0 % Neutrophils # 13.0 H (1.3-7.7) k/uL Lymphocytes # 0.7 L (1.0-4.8) k/uL Monocytes # 0.4 (0-1.0) k/uL Eosinophils # 0.3 (0-0.7) k/uL Basophils # 0.1 (0-0.2) k/uL Sodium 137 (137-145) mmol/L Potassium 3.8 (3.5-5.1) mmol/L Chloride 109 H (98-107) mmol/L Carbon Dioxide 19 L (22-30) mmol/L Anion Gap 9 mmol/L BUN 7 (7-17) mg/dL Creatinine 0.66 (0.52-1.04) mg/dL Est GFR (CKD-EPI)AfAm >90 (>60 ml/min/1.73 sqM) Est GFR (CKD-EPI)NonAf >90 (>60 ml/min/1.73 sqM) Glucose 171 H (74-99) mg/dL Plasma Lactic Acid Dylan 1.4 (0.7-2.0) mmol/L Calcium 8.0 L (8.4-10.2) mg/dL Total Bilirubin 0.4 (0.2-1.3) mg/dL AST 22 (14-36) U/L ALT 19 (4-34) U/L Alkaline Phosphatase 116 (38-126) U/L Lactate Dehydrogenase 541 (313-618) U/L C-Reactive Protein 1.1 H (<1.0) mg/dL Total Protein 6.3 (6.3-8.2) g/dL Albumin 3.5 (3.5-5.0) g/dL Amylase 50 (30-110) U/L Lipase 101 (23-300) U/L Urine Color Urine Appearance (Clear) Urine pH (5.0-8.0) Ur Specific [place] (1.001-1.035) Urine Protein (Negative) Urine Glucose (UA) (Negative) Urine Ketones (Negative) Urine Blood (Negative) Urine Nitrite (Negative) Urine Bilirubin (Negative) Urine Urobilinogen (<2.0) mg/dL Ur Leukocyte Esterase (Negative) Ur Squamous Epith Cells (0-4) /hpf Urine Mucus (None) /hpf 04/14/22 Range/Units 10:00 WBC (3.8-10.6) k/uL RBC (3.80-5.40) m/uL Hgb (11.4-16.0) gm/dL Hct (34.0-46.0) % MCV (80.0-100.0) fL MCH (25.0-35.0) pg MCHC (31.0-37.0) g/dL RDW (11.5-15.5) % Plt Count (150-450) k/uL MPV Neutrophils % % Lymphocytes % % Monocytes % % Eosinophils % % Basophils % % Neutrophils # (1.3-7.7) k/uL Lymphocytes # (1.0-4.8) k/uL Monocytes # (0-1.0) k/uL Eosinophils # (0-0.7) k/uL Basophils # (0-0.2) k/uL Sodium (137-145) mmol/L Potassium (3.5-5.1) mmol/L Chloride (98-107) mmol/L Carbon Dioxide (22-30) mmol/L Anion Gap mmol/L BUN (7-17) mg/dL Creatinine (0.52-1.04) mg/dL Est GFR (CKD-EPI)AfAm (>60 ml/min/1.73 sqM) Est GFR (CKD-EPI)NonAf (>60 ml/min/1.73 sqM) Glucose (74-99) mg/dL Plasma Lactic Acid Dylan (0.7-2.0) mmol/L Calcium (8.4-10.2) mg/dL Total Bilirubin (0.2-1.3) mg/dL AST (14-36) U/L ALT (4-34) U/L Alkaline Phosphatase (38-126) U/L Lactate Dehydrogenase (313-618) U/L C-Reactive Protein (<1.0) mg/dL Total Protein (6.3-8.2) g/dL Albumin (3.5-5.0) g/dL Amylase (30-110) U/L Lipase (23-300) U/L Urine Color Yellow Urine Appearance Turbid H (Clear) Urine pH 6.0 (5.0-8.0) Ur Specific [place] 1.032 (1.001-1.035) Urine Protein 1+ H (Negative) Urine Glucose (UA) Trace H (Negative) Urine Ketones 2+ H (Negative) Urine Blood Negative (Negative) Urine Nitrite Negative (Negative) Urine Bilirubin Negative (Negative) Urine Urobilinogen <2.0 (<2.0) mg/dL Ur Leukocyte Esterase Trace H (Negative) Ur Squamous Epith Cells 4 (0-4) /hpf Urine Mucus Many H (None) /hpf Disposition Is patient prescribed a controlled substance at d/c from ED?: No Time of Disposition: 13:17 <Ethan Chowdhuryah Keira - Last Filed: 04/15/22 12:05> Is patient prescribed a controlled substance at d/c from ED?: No <Angel Saini - Last Filed: 04/21/22 22:37> Clinical Impression: RLQ abdominal pain, Nausea and vomiting, Mesenteric panniculitis, Abdominal pain, Abdominal colic Disposition: HOME SELF-CARE Condition: Stable Instructions (If sedation given, give patient instructions): Mesenteric Adenitis (ED) Additional Instructions: Slowly advance your diet. Increase fluid intake. Take Zofran for nausea. Stop taking the antibiotics that you were previously given and start taking the Levaquin only. Follow-up with Dr. Painting your scheduled appointment and return for any new or worsening symptoms. Prescriptions: Levofloxacin [Levaquin] 750 mg PO DAILY #7 tab Referrals: Anuj Chapa MD [Primary Care Provider] - 1-2 days Wayne Painting MD [STAFF PHYSICIAN] - 1-2 days
[2022-04-14 04:01] LABS: Basophils # (A) 0.1 k/uL (0-0.2); Basophils % (A) 0 %; Eosinophils # (A) 0.3 k/uL (0-0.7); Eosinophils % (A) 2 %; HCT 43.7 % (34.0-46.0); HGB 13.8 gm/dL (11.4-16.0); Lymphocytes # (A) 0.7 k/uL (1.0-4.8); Lymphocytes % (A) 5 %; MCH 30.2 pg (25.0-35.0); MCHC 31.6 g/dL (31.0-37.0); MCV 95.6 fL (80.0-100.0); Monocytes # (A) 0.4 k/uL (0-1.0); Monocytes % (A) 3 %; Neutrophils % (A) 89 %; Platelet Count 286 k/uL (150-450); RBC 4.57 m/uL (3.80-5.40); RDW 13.8 % (11.5-15.5); WBC 14.6 k/uL (3.8-10.6)
[2022-04-14 04:19] LABS: ALT 19 U/L (4-34); AST 22 U/L (14-36); African American GFR (CKD) >90 (>60 ml/min/1.73 sqM); Albumin 3.5 g/dL (3.5-5.0); Alkaline Phosphatase 116 U/L (38-126); Amylase 50 U/L (30-110); Anion Gap 9 mmol/L; Blood Urea Nitrogen 7 mg/dL (7-17); C Reactive Protein 1.1 mg/dL (<1.0); Carbon Dioxide 19 mmol/L (22-30); Chloride 109 mmol/L (98-107); Glucose 171 mg/dL (74-99); LDH 541 U/L (313-618); Lipase 101 U/L (23-300); Non-African American GFR(CKD) >90 (>60 ml/min/1.73 sqM); Potassium 3.8 mmol/L (3.5-5.1); Sodium 137 mmol/L (137-145); Total Bilirubin 0.4 mg/dL (0.2-1.3); Total Protein 6.3 g/dL (6.3-8.2)
[2022-04-14] MEDS ORDERED: IOPAMIDOL CONTRAST (ORAL USE) VIAL PO PRN (05:21)
[2022-04-14] MEDS ORDERED: metroNIDAZOLE-NS PMX 500 MG in SALINE 1 100ML.BAG IVPB SCH (08:00)
[2022-04-14 08:13] VITALS: BP 114/64
[2022-04-14] MEDS ORDERED: MAG HYDROX/AL HYDROX/SIMETH 30 ML, HYOSCYAMINE ELIXIR 10 ML, LIDOCAINE VISCOUS 2% 10 ML PO STA ×3 (09:41)
[2022-04-14 11:26] LABS: Appearance,Urine Turbid (Clear); Bilirubin,Urine Negative (Negative); Blood,Urine Negative (Negative); Color,Urine Yellow; Glucose,Urine (UA) Trace (Negative); Ketones,Urine 2+ (Negative); Leukocyte Esterase,Urine Trace (Negative); Mucus,Urine Many /hpf; Nitrite,Urine Negative (Negative); Protein,Urine 1+ (Negative); Specific Gravity,Urine 1.032 (1.001-1.035); Squamous Epithelial Cell,Urine 4 /hpf (0-4); Urobilinogen,Urine <2.0 mg/dL (<2.0)
--- NOTE | 2022-04-14 12:45 | CT ---
EXAMINATION TYPE: CT abdomen pelvis w con DATE OF EXAM: 04/14/2022 COMPARISON: CT dated 04/12/2022 HISTORY: Abdominal pain, nausea and vomiting. CT DLP: 3301 mGycm Automated exposure control for dose reduction was used. TECHNIQUE: Helical acquisition of images was performed from the lung bases through the pelvis. CONTRAST: Performed with Oral Contrast and with IV Contrast, patient injected with 100ml mL of Isovue 300. FINDINGS: LUNG BASES: No significant abnormality is appreciated. LIVER/GB: Previous cholecystectomy. Unremarkable liver. PANCREAS: No significant abnormality is seen. SPLEEN: No significant abnormality is seen. ADRENALS: No significant abnormality is seen. KIDNEYS: No significant abnormality is seen. FREE AIR: No free air is visualized. RETROPERITONEAL ADENOPATHY: None visualized REPRODUCTIVE ORGANS: No gross uterine or adnexal mass. URINARY BLADDER: No significant abnormality is seen. PELVIC ADENOPATHY: None visualized. OSSEOUS STRUCTURES: No aggressive bone lesion. BOWEL: Unremarkable stomach, duodenum and small bowel. Fluid-filled rectum and segments of the colon without significant wall thickening. Please correlate clinically for diarrhea. Normal appendix. OTHER: Again noted are signs suggestive of mesenteric panniculitis, please correlate clinically. No s izable free abdominal fluid. IMPRESSION: Persistent signs suggestive of mesenteric pericarditis, please correlate likely. Fluid-filled rectum and segments of the colon which may suggest diarrhea. Mild colitis can't be exclu ded. Normal appendix.
[2022-04-14 13:42] VITALS: PULSE 85; RESP 18; TEMP 98.2
== END 2022-04-14 13:30 | disposition home or self-care (01) ==
LOC: EC 23:50
DX: K65.4 Sclerosing mesenteritis (principal); E07.9 Disorder of thyroid, unspecified; F41.9 Anxiety disorder, unspecified; Z87.891 Personal history of nicotine dependence; Z79.890 Hormone replacement therapy; Z79.899 Other long term (current) drug therapy
CPT/HCPCS: 36415; 80053; 82150; 83605; 83615; 83690; 85025; 86140; 81001; 74177; 99284; 96365; 96366 ×2; 96375 ×3; 96376; J2270; J2405; J0696; J1885; Q9967

== ENCOUNTER 2022-06-02 07:48 | Day surgery (SDC) | payer OTHER ==
[2022-05-31 15:57] VITALS: BMI 47.5
[~2022-06-02 07:48] MED LIST: LACTATED RINGERS 1,000 ML IV SCH; LIDOCAINE 1% (10MG/ML) FOR IV START INTRADERMA PRN; ONDANSETRON 4 MG/2 ML VIAL IVP PRN
[2022-06-02 08:30] VITALS: TEMP 97.2
[2022-06-02] MEDS ORDERED: LIDOCAINE 2% INJ 20 MG/ML (2 ML VIAL) ONE (09:04)
[2022-06-02] MEDS ORDERED: PROPOFOL 10 MG/ML 20 ML VIAL IV ONE (09:04)
--- NOTE | 2022-06-02 09:05 | P.GSHP ---
History of Present Illness H&P Date: 06/02/22 Chief Complaint: Diarrhea, change in bowel habits Is a 29-year-old female presents today for colonoscopy. Patient issues with diarrhea. Past Medical History Past Medical History: GERD/Reflux, Hyperlipidemia, Thyroid Disorder Additional Past Medical History / Comment(s): panniculitis History of Any Multi-Drug Resistant Organisms: None Reported Past Surgical History: Cholecystectomy, Tubal Ligation Past Anesthesia/Blood Transfusion Reactions: No Reported Reaction Past Psychological History: Anxiety Smoking Status: Former smoker Past Alcohol Use History: None Reported Past Drug Use History: None Reported Medications and Allergies Home Medications Medication Instructions Recorded Confirmed Type Atorvastatin [Lipitor] 20 mg PO DAILY 04/12/22 06/02/22 History Famotidine [Pepcid] 40 mg PO DAILY 04/12/22 06/02/22 History Levothyroxine Sodium [Synthroid] 175 mcg PO DAILY 04/12/22 06/02/22 History buPROPion XL [Wellbutrin XL] 150 mg PO DAILY 04/12/22 06/02/22 History Citalopram Hydrobromide 10 mg PO DAILY 05/31/22 06/02/22 History [Citalopram HBr] Allergies Allergy/AdvReac Type Severity Reaction Status Date / Time amoxicillin [Amoxicillin] Allergy Unknown Verified 06/02/22 08:26 diphenhydramine HCl Allergy Unknown Verified 06/02/22 08:26 [From Benadryl] Penicillins Allergy Unknown Verified 06/02/22 08:26 promethazine HCl Allergy Unknown Verified 06/02/22 08:26 [From Phenergan] Antihistamines - Alkylamine AdvReac Nausea & Verified 06/02/22 08:26 Vomiting Surgical - Exam Vital Signs Temp Pulse Resp BP Pulse Ox 97.2 F L 95 18 146/67 96 06/02/22 08:21 06/02/22 08:21 06/02/22 08:21 06/02/22 08:21 06/02/22 08:21 - General well developed, well nourished - Eyes PERRL - ENT normal pinna - Neck no masses - Respiratory normal expansion - Cardiovascular Rhythm: regular - Abdomen Abdomen: soft, non tender Assessment and Plan Assessment: Diarrhea. We'll perform colonoscopy
--- NOTE | 2022-06-02 09:21 | P.OP ---
Date of Procedure: 06/02/22 Preoperative Diagnosis: Diarrhea Postoperative Diagnosis: Normal colonoscopy Procedure(s) Performed: Colonoscopy Anesthesia: MAC Surgeon: Wayne Delong Pathology: other (Rectal biopsy) Condition: stable Disposition: PACU Description of Procedure: The patient's placed on the endoscopy table lateral position. She received IV sedation. Digital rectal exam was performed. This revealed no ebonized. The possible colonoscope was then placed patient anus passed throughout the entire colon. Ileocecal valve was visualized. The cecum, ascending and transverse colon appeared normal. The descending and sigmoid colon appeared normal. Scope was brought back the rectum this appeared normal. Due to the patient's symptoms of diarrhea a random rectal biopsy performed. Scope withdrawn for patient.
[2022-06-02] MEDS ORDERED: IV FLUID CONTINUATION 900 ML IV ONE (09:22)
[2022-06-02] MEDS ORDERED: LACTATED RINGERS 1,000 ML IV ONE (09:22)
[2022-06-02 09:48] VITALS: BP 133/86; PULSE 83; RESP 18
== END 2022-06-02 10:07 | disposition home or self-care (01) ==
LOC: ORWHC2ENDO 07:48
PROVIDERS: ATTEND Surgery
DX: R19.7 Diarrhea, unspecified (principal); R19.4 Change in bowel habit; K21.9 Gastro-esophageal reflux disease without esophagitis; E78.5 Hyperlipidemia, unspecified; E07.9 Disorder of thyroid, unspecified; Z90.49 Acquired absence of other specified parts of digestive tract; Z98.51 Tubal ligation status; F41.9 Anxiety disorder, unspecified; E66.01 Morbid (severe) obesity due to excess calories; Z68.42 Body mass index [BMI] 45.0-49.9, adult; Z87.891 Personal history of nicotine dependence; Z79.899 Other long term (current) drug therapy; Z79.890 Hormone replacement therapy; Z88.0 Allergy status to penicillin; Z88.8 Allergy status to other drugs, medicaments and biological substances
CPT/HCPCS: 81025; 88305; 45380; J2704; J2001

== ENCOUNTER → 2023-10-13 | Outpatient (CLI) | payer OTHER ==
--- NOTE | 2023-10-15 21:09 | US ---
EXAMINATION TYPE: US thyroid st tissue head/neck DATE OF EXAM: 10/13/2023 COMPARISON: 08/21/2020 CLINICAL INDICATION: Female, 38 years old with history of R49.0 DYSPHONIA; GLAND SIZE: Right Lobe: 1.8 x 0.7 x 0.7 cm Overall Parenchyma: heterogenous Left Lobe: 1.8 x 0.6 x 0.7 cm Overall Parenchyma: heterogenous Isthmus Thickness: 0.2 cm NODULES RIGHT: # of nodules measured on right: 0 LEFT: # of nodules measured on left: 0 ISTHMUS: # of nodules measured in the isthmus: 0 Bilateral neck scanned, no evidence of lymphadenopathy. IMPRESSION: Very small heterogeneous thyroid gland suggests chronic hypothyroidism. Clinically correlate. No disc rete nodule seen.
== END | disposition home or self-care (01) ==
LOC: RADUSWWP 15:30
PROVIDERS: ATTEND Family Medicine
DX: E07.89 Other specified disorders of thyroid (principal); R49.0 Dysphonia
CPT/HCPCS: 76536